=== PATIENT | male | born 1995 | race Caucasian/White ===

== ENCOUNTER 2019-03-26 10:06 | Emergency (ER) | payer OTHER ==
[~2019-03-26] VITALS: Ht 165.1 cm; Wt 93.5 kg
[2019-03-26 11:28] LABS: BASO % 0.3 % (0.0-1.0); EOS # 0.1 10^3/uL (0.0-0.5); EOS % 0.7 % (0.0-3.0); HEMATOCRIT 50.4 % (42.0-52.0); HEMOGLOBIN 17.1 g/dl (13.5-17.5); LYMPH # 2.4 10^3/uL (1.5-5.0); LYMPH % 26.3 % (24.0-44.0); MEAN CORPUSCULAR HEMOGLOBIN 30.6 pg (27.0-33.0); MEAN CORPUSCULAR HGB CONC 33.9 g/dl (32.0-36.5); MEAN CORPUSCULAR VOLUME 90.3 fl (80.0-96.0); MONO # 0.6 10^3/uL (0.0-0.8); MONO % 6.2 % (0.0-5.0); NEUTROPHILS % 66.2 % (36.0-66.0); PLATELET COUNT, AUTOMATED 304 10^3/uL (150-450); RED BLOOD COUNT 5.58 10^6/uL (4.30-6.10)
[2019-03-26 12:00] LABS: BLOOD UREA NITROGEN 11 MG/DL (7-18); CALCIUM LEVEL 9.5 MG/DL (8.5-10.1); CARBON DIOXIDE LEVEL 30 MEQ/L (21-32); CHLORIDE LEVEL 105 MEQ/L (98-107); CREATININE FOR GFR 1.14 MG/DL (0.70-1.30); GLOMERULAR FILTRATION RATE > 60.0 (>60); GLUCOSE, FASTING 84 MG/DL (70-100); SODIUM LEVEL 140 MEQ/L (136-145)
--- NOTE | 2019-03-26 12:22 | REP ---
RENAL ULTRASOUND: Real-time sonographic evaluation of the kidneys performed. The kidneys are normal in size and echotexture, right kidney measuring 11.1 x 6.2 x 5.2 cm and left kidney 11.4 x 5.2 x 5.3 cm. There is no hydronephrosis bilaterally. No definite renal stones are seen. No renal mass is visualized. Urinary bladder is empty and ureteral jets are not visualized with Doppler color evaluation. IMPRESSION: Essentially negative renal ultrasound. Electronically Signed by Lino Modi MD 03/27/2019 01:31 P
[2019-03-26] MEDS ORDERED: ONDA4TAB6 PO (13:04)
[2019-03-26 13:08] VITALS: BP 130/61
== END 2019-03-26 13:13 | disposition home or self-care (01) ==
LOC: M ED 10:06
DX: M54.5 Low back pain (principal); R53.81 Other malaise; R11.0 Nausea

== ENCOUNTER 2020-03-23 09:47 | Emergency (ER) | payer OTHER ==
[~2020-03-23] VITALS: Ht 170.2 cm; Wt 102.7 kg
[~2020-03-23 09:47] MED LIST: ONDA4TAB6 PO
[2020-03-23] MEDS ORDERED: NS 1,000 ML IV ONE (10:45)
[2020-03-23 10:58] LABS: BASO % 0.3 % (0.0-1.0); EOS # 0.2 10^3/uL (0.0-0.5); EOS % 2.7 % (0.0-3.0); HEMATOCRIT 51.9 % (42.0-52.0); HEMOGLOBIN 17.7 g/dl (13.5-17.5); LYMPH % 25.2 % (24.0-44.0); MEAN CORPUSCULAR HEMOGLOBIN 29.6 pg (27.0-33.0); MEAN CORPUSCULAR HGB CONC 34.1 g/dl (32.0-36.5); MEAN CORPUSCULAR VOLUME 86.9 fl (80.0-96.0); MONO # 0.6 10^3/uL (0.0-0.8); MONO % 7.5 % (0.0-5.0); NEUTROPHILS % 63.8 % (36.0-66.0); PLATELET COUNT, AUTOMATED 286 10^3/uL (150-450); RED BLOOD COUNT 5.97 10^6/uL (4.30-6.10); WHITE BLOOD COUNT 7.9 10^3/uL (4.0-10.0)
[2020-03-23 11:24] LABS: ALBUMIN 4.5 GM/DL (3.2-5.2); ALT/SGPT 103 U/L (12-78); BILIRUBIN,DIRECT 0.3 MG/DL (0.0-0.2); BILIRUBIN,TOTAL 1.7 MG/DL (0.2-1.0); BLOOD UREA NITROGEN 26 MG/DL (7-18); CALCIUM LEVEL 9.7 MG/DL (8.5-10.1); CARBON DIOXIDE LEVEL 29 MEQ/L (21-32); CHLORIDE LEVEL 102 MEQ/L (98-107); CK-MB VALUE MASS < 1.0 NG/ML (<3.6); CPK CREATINE PHOSPHOKINASE 95 U/L (39-308); CREATININE FOR GFR 0.98 MG/DL (0.70-1.30); GLOMERULAR FILTRATION RATE > 60.0 (>60); GLUCOSE, FASTING 92 MG/DL (70-100); LIPASE 97 U/L (73-393); MB/CK RELATIVE INDEX 1.05 (< OR =4); POTASSIUM SERUM 4.5 MEQ/L (3.5-5.1); SODIUM LEVEL 139 MEQ/L (136-145); TOTAL PROTEIN 7.9 GM/DL (6.4-8.2); TROPONIN I < 0.02 NG/ML (< 0.10)
--- NOTE | 2020-03-23 11:53 | REP ---
INDICATION: Abdominal Pain. COMPARISON: None. TECHNIQUE: Four views. FINDINGS: Upright chest radiograph is unremarkable. There is no evidence of infiltrate or free subdiaphragmatic air. Heart size is normal. Pulmonary vasculature is not increased. Pleural angles are sharp. Supine and erect views of the abdomen demonstrate a normal bowel gas pattern. The psoas margins and the flank stripes are intact. There is no evidence of mass, organomegaly, or pathologic calcification. IMPRESSION: Negative acute abdominal series. <Electronically signed by Fantasma Mayer > 03/23/20 [id number]
--- NOTE | 2020-03-23 11:54 | REP ---
INDICATION: RUQ pain. COMPARISON: None. TECHNIQUE: Right upper quadrant sonography. FINDINGS: Scanning through the right upper quadrant of the abdomen demonstrates a normal sized, thin-walled gallbladder without evidence of stone or polyp. Common bile duct is normal measuring 0.5 cm in greatest diameter. No focal liver lesion is seen. Liver size is normal. There is evidence of mild fatty infiltration in the liver. No pancreatic abnormality is observed. No right renal abnormality is seen. There is no evidence of ascites. The right kidney measures 12.3 x 4.7 x 4.4 cm. IMPRESSION: Evidence of mild fatty infiltration of the liver. Otherwise negative right upper quadrant sonography.. <Electronically signed by Fantasma Mayer > 03/23/20 [id number]
[2020-03-23] MEDS ORDERED: ISOVUE-370 76% 100ML VIAL As Ordered ONE (13:40)
--- NOTE | 2020-03-23 14:00 | REP ---
INDICATION: RUQ pain, diffuse abd TTP. COMPARISON: None. TECHNIQUE: Helical scanning was acquired and 4 mm axial images are re-formatted. Coronal and sagittal MPR images were generated and reviewed. The contrast enhancement dose is 100 mL of intravenous Isovue 370. FINDINGS: Preliminary digital study hall supervisor radiograph is noncontributory. The lung bases are clear on axial CT images. There is no evidence of pleural effusion or upper abdominal ascites. There is mild diffuse 2 moderate diffuse fatty infiltration of the liver. No focal hepatic lesion is seen. The liver is not felt to be enlarged. Spleen is normal in size homogeneous in texture. There is an accessory splenule. No abnormality is noted in the pancreas or the gallbladder. Normal adrenal glands are observed bilaterally. The kidneys enhance symmetrically and are morphologically intact. Normal caliber aorta. Small and large bowel loops are normal in the upper abdomen. There is a tiny metallic density which appears to be within the lumen of the appendix. There is no evidence of appendiceal inflammation or dilation. No abnormal fluid collection is seen. Seminal vesicles, prostate, and urinary bladder are intact. Small and large bowel loops are otherwise unremarkable in the pelvis. No bony destructive lesion is seen. IMPRESSION: Fatty infiltration of the liver. Small metallic density which appears to project within the lumen of the noninflamed normal size appendix. No CT evidence of appendicitis. Otherwise negative. <Electronically signed by Fantasma Mayer > 03/23/20 [id number]
[2020-03-23 14:39] VITALS: BP 127/70
--- NOTE | 2020-03-23 21:56 | ED PDOC ---
Post-Departure Follow-Up ft jennifer fernandes faxed formal report of ct abd/p for fu Gertrude Marks MD Mar 23, 2020 21:56
--- NOTE | 2020-03-25 14:21 | ECGEPIP ---
[facility] - ED Test Date: 2020-03-23 Pat Name: CASSIUS GUY Department: Room: - Gender: Male [employer]aning [employer] Member: : [id number] Requested By: HOMERO Arrieta PA-C Order Number: [id number] Reading MD: Mely Newman Measurements Intervals Equality Rate: 58 P: 38 MN: 165 QRS: 48 QRSD: 93 T: 24 QT: 391 QTc: 385 Interpretive Statements SINUS BRADYCARDIA NO PRIOR Electronically Signed on 03-25-2020 14:20:37 EST by Mely Newman
== END 2020-03-23 15:00 | disposition home or self-care (01) ==
LOC: M ED 09:47
DX: R10.9 Unspecified abdominal pain (principal); K76.0 Fatty (change of) liver, not elsewhere classified; R00.1 Bradycardia, unspecified
CPT/HCPCS: 36415; 74021; 74177; 76705; 80047; 80053; 81001; 82248; 82550; 82553; 83690; 84484; 85025; 93005; 96360; 99284; Q9967

== ENCOUNTER 2020-05-13 11:30 | Emergency (ER) | payer OTHER ==
[~2020-05-13] VITALS: Ht 170.2 cm; Wt 108.1 kg
[2020-05-13 12:10] LABS: BASO # 0.1 10^3/uL (0.0-0.2); BASO % 0.6 % (0.0-1.0); EOS # 0.2 10^3/uL (0.0-0.5); EOS % 2.3 % (0.0-3.0); HEMATOCRIT 49.2 % (42.0-52.0); HEMOGLOBIN 17.8 g/dl (13.5-17.5); LYMPH # 2.5 10^3/uL (1.5-5.0); LYMPH % 31.9 % (24.0-44.0); MEAN CORPUSCULAR HEMOGLOBIN 31.2 pg (27.0-33.0); MEAN CORPUSCULAR HGB CONC 36.2 g/dl (32.0-36.5); MEAN CORPUSCULAR VOLUME 86.3 fl (80.0-96.0); MONO # 0.5 10^3/uL (0.0-0.8); MONO % 6.8 % (2.0-8.0); NEUTROPHILS # 4.6 10^3/uL (1.5-8.5); PLATELET COUNT, AUTOMATED 281 10^3/uL (150-450); WHITE BLOOD COUNT 7.9 10^3/uL (4.0-10.0)
[2020-05-13 12:40] LABS: ALBUMIN 4.4 GM/DL (3.2-5.2); BILIRUBIN,DIRECT 0.3 MG/DL (0.0-0.2); BILIRUBIN,TOTAL 1.4 MG/DL (0.2-1.0); TOTAL PROTEIN 7.5 GM/DL (6.4-8.2)
--- NOTE | 2020-05-13 12:50 | REP ---
INDICATION: RUQ pain, worse after food, pain with palpation. COMPARISON: 03/23/2020. TECHNIQUE: Multiple ultrasonographic images of the abdominal right upper quadrant. FINDINGS: There is no cholelithiasis, gallbladder wall thickening or pericholecystic fluid. There is no intrahepatic or extrahepatic biliary duct dilatation. The common duct measures 3.1 mm in diameter. The hepatic parenchyma is slightly hyperechoic compatible with hepato steatosis. This is unchanged. There is a focal zone fat sparing near the gallbladder. This is not unusual. The pancreas is obscured by bowel gas and cannot be optimally evaluated. The right kidney measures 11.6 x 4.1 x 5.0 cm and is normal size. There is no right renal calculus, hydronephrosis, solid mass or cyst. There is no right upper quadrant abdominal free fluid. IMPRESSION: Hepato steatosis. Otherwise, essentially negative abdominal right upper quadrant ultrasound. No significant interval change. <Electronically signed by Lino Patel > 05/13/20 [id number]
[2020-05-13 13:10] VITALS: BP 133/73
== END 2020-05-13 13:28 | disposition home or self-care (01) ==
LOC: M ED 11:30
DX: K76.0 Fatty (change of) liver, not elsewhere classified (principal); R10.9 Unspecified abdominal pain; I10 Essential (primary) hypertension